=== PATIENT | female | born 1995 | race Caucasian/White ===

== ENCOUNTER → 2016-11-23 | Outpatient (CLI) | payer SELFPAY ==
--- NOTE | 2016-11-23 17:31 | RADIOLOGY REPORT (SQ) ---
EXAM DESCRIPTION: U/S OB TRANSVAGINAL W/O DOP COMPLETED DATE/TIME: 11/23/2016 2:45 pm REASON FOR STUDY: ENCOUNTER FOR SUPERVISION OF OTHER NORMAL , FIRST TRIMESTER Z34.81 ENCOU NTER FOR SUPRVSN OF NORMAL , FIRST TRIM COMPARISON: No previous this TECHNIQUE: Endovaginal static and realtime grayscale images acquired of the pelvis. Additional selec abiodun spectral and color Doppler images recorded. All images stored on PACs. bHCG: Not available. LIMITATIONS: None. FINDINGS: FETUS: Living intrauterine . EGA: 7 weeks 2 days by crown-rump length CEASAR: 07/10/2017 FHR: 141 beats per minute. SUBCHORIONIC BLEED: No SIZE OF BLEED: Not applicable. UTERUS: No masses. No anomalies. Uterus is 9.8 x 5.9 x 4.7 cm in size CERVICAL LENGTH: 2.5 cm in length, Closed. RIGHT ADNEXA: Normal ovary with normal vascular flow. Right ovary 3.3 x 1.7 x 1.6 cm in size. No ad nexal free fluid.No adnexal masses. LEFT ADNEXA: Not visualized due to bowel gas. FREE FLUID: None. OTHER: No other significant finding. IMPRESSION: LIVING INTRAUTERINE . EGA 7 weeks 2 days Trimester of : First - 0 to 13 weeks. TECHNICAL DOCUMENTATION: JOB ID: [id number] [employer]- All Rights Reserved
== END ==
LOC: RAD 13:01
PROVIDERS: ATTEND Nurse Practitioner Women's Health
DX: Z34.81 Encounter for supervision of other normal pregnancy, first trimester (principal)
CPT/HCPCS: 76817

== ENCOUNTER 2017-03-05 18:24 | Outpatient (CLI) | payer MEDICAID ==
[2017-03-05 19:12] LABS: BILIRUBIN,URINE NEGATIVE (NEGATIVE); GLUCOSE, URINE NEGATIVE (NEGATIVE); KETONES,URINE NEGATIVE (NEGATIVE); LEUKOCYTE ESTERASE,URINE LARGE (NEGATIVE); NITRITE,URINE NEGATIVE (NEGATIVE); PROTEIN,URINE 30 mg/dL (NEGATIVE); URINE SPECIFIC GRAVITY 1.023
[2017-03-05 19:15] LABS: APPEARANCE,URINE SLIGHTLY HAZY
[2017-03-05 19:27] LABS: URINE BARBITURATES SCREEN NEGATIVE; URINE METHADONE SCREEN NEGATIVE; URINE OPIATES LOW NEGATIVE; URINE PHENCYCLIDINE SCREEN NEGATIVE
[2017-03-05] MEDS ORDERED: OXYCODONE-ACETAMINOPHEN 5-325 MG TABLET PO ONE ×2 (20:28)
[2017-03-05] MEDS ORDERED: OXYCODONE-ACETAMINOPHEN 5-325 MG TABLET ONE (20:39)
== END 2017-03-05 21:01 | disposition home or self-care (01) ==
LOC: LC 18:24
PROVIDERS: ATTEND Obstetrics & Gynecology
PROC: 4A1HXCZ Monitoring of Products of Conception, Cardiac Rate, External Approach (ICD-10-PCS; principal; 2017-03-05)
DX: O99.342 Other mental disorders complicating pregnancy, second trimester (principal); F41.9 Anxiety disorder, unspecified; F32.9 Major depressive disorder, single episode, unspecified; Z91.040 Latex allergy status; Z3A.22 22 weeks gestation of pregnancy
CPT/HCPCS: 80307; 81005

== ENCOUNTER 2017-03-13 10:41 | Emergency (ER) | payer MEDICAID ==
[2017-03-13 11:12] VITALS: BP 108/65
--- NOTE | 2017-03-13 11:47 | ER Document Report ---
ED Flu Like - General Chief Complaint: Flu Symptoms Stated Complaint: COUGH, SORE THROAT, BODY ACHES Time Seen by Provider: 03/13/17 10:58 Mode of Arrival: Ambulatory Information source: Patient Notes: Patient is a 21-year-old female who presents to the ER today for one half weeks of cough, runny nose, sore throat. Patient admits to fevers and chills, body aches. She states her fevers got as high as 101.5F. She denies any history of asthma. TRAVEL OUTSIDE OF THE [place] IN LAST 30 DAYS: No - Related Data Allergies/Adverse Reactions: No Known Allergies Allergy (Verified 03/13/17 10:42) Past Medical History - General Information source: Patient - Social History Smoking Status: Never Smoker Chew tobacco use (# tins/day): No Frequency of alcohol use: None Drug Abuse: None Family History: Reviewed & Not Pertinent Patient has suicidal ideation: No Patient has homicidal ideation: No Renal/ Medical History: Denies: Hx Peritoneal Dialysis - Immunizations Hx Diphtheria, Pertussis, Tetanus Vaccination: Yes Review of Systems - Review of Systems Constitutional: See HPI EENT: See HPI Cardiovascular: No symptoms reported Respiratory: See HPI Gastrointestinal: No symptoms reported Genitourinary: No symptoms reported Female Genitourinary: No symptoms reported Musculoskeletal: No symptoms reported Skin: No symptoms reported Hematologic/Lymphatic: No symptoms reported Neurological/Psychological: No symptoms reported Physical Exam - Vital signs Vitals: Temp Pulse Resp BP Pulse Ox 98.9 F 108 H 18 108/65 94 03/13/17 10:56 03/13/17 10:56 03/13/17 10:56 03/13/17 10:56 03/13/17 10:56 - Notes Notes: PHYSICAL EXAMINATION: GENERAL: Mildly ill-appearing, but in no acute distress. HEAD: Atraumatic, normocephalic. EYES: Pupils equal round and reactive to light, extraocular movements intact, sclera anicteric, conjunctiva are normal. ENT: ear canals without erythema or foreign body, normal TMs with pearly negrete good cone of light nares with mucoid discharge, oropharynx clear without exudates. Moist mucous membranes. NECK: Normal range of motion, supple without lymphadenopathy LUNGS: Coughing, otherwise CTAB and equal. No wheezes rales or rhonchi. HEART: Regular rate and rhythm without murmurs ABDOMEN: Soft, no tenderness. No guarding, no rebound EXTREMITIES: Normal range of motion, no pitting edema. No cyanosis. NEUROLOGICAL: Cranial nerves grossly intact. Normal sensory/motor exams. PSYCH: Normal mood, normal affect. SKIN: Warm, Dry, normal turgor, no rashes or lesions noted Course - Re-evaluation Re-evalutation: 03/13/17 16:27 Influenza negative today. - Vital Signs Vital signs: Temp Pulse Resp BP Pulse Ox 98.9 F 108 H 18 108/65 94 03/13/17 10:56 03/13/17 10:56 03/13/17 10:56 03/13/17 10:56 03/13/17 10:56 Discharge - Discharge Clinical Impression: Sinusitis Qualifiers: Sinusitis location: unspecified location Chronicity: acute Recurrence: non- recurrent Qualified Code(s): J01.90 - Acute sinusitis, unspecified Condition: Stable Disposition: HOME, SELF-CARE Additional Instructions: Return immediately for any new or worsening symptoms. Follow up with primary care provider, call tomorrow to make followup appointment. Prescriptions: Amoxicillin 500 mg PO BID #20 capsule Forms: Return to Work Referrals: MIROSLAVA SHEA PA-C [Primary Care Provider] - Follow up as needed
== END 2017-03-13 12:54 | disposition home or self-care (01) ==
LOC: ER 10:41
DX: J01.90 Acute sinusitis, unspecified (principal); R05 Cough; J02.9 Acute pharyngitis, unspecified; M79.1 Myalgia; R09.89 Other specified symptoms and signs involving the circulatory and respiratory systems; R50.9 Fever, unspecified
CPT/HCPCS: 87804; 99283

== ENCOUNTER 2017-04-02 07:58 | Outpatient (CLI) | payer MEDICAID ==
[2017-04-02 09:15] LABS: APPEARANCE,URINE SLIGHTLY-CLOUDY; BILIRUBIN,URINE NEGATIVE (NEGATIVE); COLOR,URINE YELLOW; GLUCOSE, URINE NEGATIVE (NEGATIVE); KETONES,URINE NEGATIVE (NEGATIVE); LEUKOCYTE ESTERASE,URINE MODERATE (NEGATIVE); NITRITE,URINE NEGATIVE (NEGATIVE); PROTEIN,URINE NEGATIVE (NEGATIVE); URINE SPECIFIC GRAVITY 1.028; UROBILINOGEN,URINE NEGATIVE mg/dL (<2.0)
[2017-04-02] MEDS ORDERED: ONDANSETRON 4 MG TAB.RAPDIS PO ONE (09:18)
[2017-04-02 09:26] LABS: URINE AMPHETAMINES SCREEN NEGATIVE; URINE BARBITURATES SCREEN NEGATIVE; URINE BENZODIAZEPINES SCREEN NEGATIVE; URINE COCAINE SCREEN NEGATIVE; URINE MARIJUANA (THC) SCREEN NEGATIVE; URINE METHADONE SCREEN NEGATIVE; URINE PHENCYCLIDINE SCREEN NEGATIVE
[2017-04-02] MEDS ORDERED: ONDANSETRON 4 MG TAB.RAPDIS ONE (09:28)
[2017-04-02] MEDS ORDERED: FAMOTIDINE 20 MG TABLET PO ONE (09:38)
[2017-04-02] MEDS ORDERED: FAMOTIDINE 20 MG TABLET ONE (09:43)
== END 2017-04-02 10:30 | disposition home or self-care (01) ==
LOC: LC 07:58
PROVIDERS: ATTEND Obstetrics & Gynecology
PROC: 4A1HXCZ Monitoring of Products of Conception, Cardiac Rate, External Approach (ICD-10-PCS; principal; 2017-04-02)
DX: O99.612 Diseases of the digestive system complicating pregnancy, second trimester (principal); K52.9 Noninfective gastroenteritis and colitis, unspecified; Z3A.25 25 weeks gestation of pregnancy
CPT/HCPCS: 59899; 81001; 80307; J3490; S0119

== ENCOUNTER 2017-04-03 00:37 | Outpatient (CLI) | payer MEDICAID ==
[2017-04-03 01:04] LABS: APPEARANCE,URINE SLIGHTLY-CLOUDY; BILIRUBIN,URINE NEGATIVE (NEGATIVE); COLOR,URINE YELLOW; GLUCOSE, URINE NEGATIVE (NEGATIVE); KETONES,URINE NEGATIVE (NEGATIVE); LEUKOCYTE ESTERASE,URINE LARGE (NEGATIVE); NITRITE,URINE NEGATIVE (NEGATIVE); PROTEIN,URINE NEGATIVE (NEGATIVE); URINE SPECIFIC GRAVITY 1.027
[2017-04-03 01:15] LABS: URINE AMPHETAMINES SCREEN NEGATIVE; URINE BARBITURATES SCREEN NEGATIVE; URINE BENZODIAZEPINES SCREEN NEGATIVE; URINE COCAINE SCREEN NEGATIVE; URINE MARIJUANA (THC) SCREEN NEGATIVE; URINE METHADONE SCREEN NEGATIVE; URINE PHENCYCLIDINE SCREEN NEGATIVE
== END 2017-04-03 01:30 | disposition home or self-care (01) ==
LOC: LC 00:37
PROVIDERS: ATTEND Obstetrics & Gynecology
PROC: 4A1HXCZ Monitoring of Products of Conception, Cardiac Rate, External Approach (ICD-10-PCS; principal; 2017-04-03)
DX: O99.612 Diseases of the digestive system complicating pregnancy, second trimester (principal); K52.9 Noninfective gastroenteritis and colitis, unspecified; O47.02 False labor before 37 completed weeks of gestation, second trimester; Z3A.26 26 weeks gestation of pregnancy
CPT/HCPCS: 80307; 81001

== ENCOUNTER 2017-05-19 15:03 | Outpatient (CLI) | payer BC, MEDICAID ==
[2017-05-19 15:42] LABS: APPEARANCE,URINE SLIGHTLY-CLOUDY; BILIRUBIN,URINE NEGATIVE (NEGATIVE); COLOR,URINE AMBER; GLUCOSE, URINE NEGATIVE (NEGATIVE); KETONES,URINE NEGATIVE (NEGATIVE); LEUKOCYTE ESTERASE,URINE LARGE (NEGATIVE); NITRITE,URINE NEGATIVE (NEGATIVE); PROTEIN,URINE 30 mg/dL (NEGATIVE); URINE SPECIFIC GRAVITY 1.028
[2017-05-19 15:59] LABS: URINE AMPHETAMINES SCREEN NEGATIVE; URINE BARBITURATES SCREEN NEGATIVE; URINE BENZODIAZEPINES SCREEN NEGATIVE; URINE COCAINE SCREEN NEGATIVE; URINE MARIJUANA (THC) SCREEN NEGATIVE; URINE METHADONE SCREEN NEGATIVE; URINE PHENCYCLIDINE SCREEN NEGATIVE
--- NOTE | 2017-05-19 16:37 | Non Stress Test Report ---
Non Stress Test Datetime Report Generated by CPN: 05/19/2017 16:37 DEMOGRAPHIC EGA NST: 32.4 INDICATION Indication for Study: Ordered by Provider VITAL SIGNS Temperature - NST: 98.6 Pulse - NST: 93 RESP - NST: 14 NBPSYS NST: 106 NBPDIA NST: 56 MONITORING Monitor Explained: Monitor Explained; Test Explained; Patient Verbalized Understanding Time on Monitor: 05/19/2017 15:23 Time off Monitor: 05/19/2017 16:29 NST Duration: 66 NST INTERVENTIONS NST Interventions: PO Hydration Physician Notified NST: P Beckett CNM BABY A: [id number] BABY A Movement : Present Contraction Frequency : none FHR Baseline : 145 Accelerations : 15X15 Decelerations : None Variability : Moderate 6-25bpm NST Review: Meets Criteria for Reactive NST NST Review and Verified By : EMMANUEL ROBERSON RN NST Results: Reactive NST REPORT Report Trigger: Send Report
== END 2017-05-19 16:34 | disposition home or self-care (01) ==
LOC: LC 15:03
PROVIDERS: ATTEND Student in an Organized Health Care Education/Training Program
PROC: 4A1HXCZ Monitoring of Products of Conception, Cardiac Rate, External Approach (ICD-10-PCS; principal; 2017-05-19)
DX: O47.03 False labor before 37 completed weeks of gestation, third trimester (principal); Z3A.32 32 weeks gestation of pregnancy
CPT/HCPCS: 59025; 80307; 81001

== ENCOUNTER 2018-01-16 15:16 | Emergency (ER) | payer BC, MEDICAID ==
[2018-01-16] MEDS ORDERED: ACETAMINOPHEN 325 MG TABLET PO ONE (16:42)
--- NOTE | 2018-01-16 16:43 | ER Document Report ---
HPI - HPI Patient complains to provider of: Neck pain and burning Onset: Last week Onset/Duration: Gradual Pain Level: 4 Context: 22 yo non working female c/o pain and burning in left shoulder/ back since last week. Worse with neck movement. some tingling into shoulder and arm, none now. No injury. Associated Symptoms: None Exacerbated by: Movement Relieved by: Denies Similar symptoms previously: No Recently seen / treated by doctor: No - ROS ROS below otherwise negative: Yes Systems Reviewed and Negative: Yes All other systems reviewed and negative - REPRODUCTIVE Reproductive: REPORTS: : Past Medical History - General Information source: Patient - Social History Smoking Status: Unknown if Ever Smoked Lives with: Family Family History: Reviewed & Not Pertinent - Medical History Medical History: Negative Renal/ Medical History: Denies: Hx Peritoneal Dialysis Surgical Hx: Negative - Immunizations Hx Diphtheria, Pertussis, Tetanus Vaccination: Yes Vertical Provider Document - CONSTITUTIONAL Agree With Documented VS: Yes Exam Limitations: No Limitations General Appearance: No Apparent Distress - INFECTION CONTROL TRAVEL OUTSIDE OF THE [place] IN LAST 30 DAYS: No - HEENT HEENT: Normocephalic - NECK Neck: Supple Notes: tender left trapezius muscle. non tender c spine. Course - Re-evaluation Re-evalutation: 01/16/18 16:50 Patient denies . She understands the range of motion exercises that I have reviewed with her. - Vital Signs Vital signs: Temp Pulse Resp BP Pulse Ox 98.5 F 86 16 137/84 H 98 01/16/18 15:19 01/16/18 15:19 01/16/18 15:19 01/16/18 15:19 01/16/18 15:19 Discharge - Discharge Clinical Impression: Strain of left trapezius muscle Qualifiers: Encounter type: initial encounter Qualified Code(s): S46.812A - Strain of other muscles, fascia and tendons at shoulder and upper arm level, left arm, initial encounter Condition: Good Disposition: HOME, SELF-CARE Instructions: Acetaminophen, Ibuprofen (General) ([facility]), Muscle Relaxers ([facility]), Muscle Strain ([facility]), Warm Packs ([facility]) Additional Instructions: Warm compress Tylenol up to 4000 mg a day for pain Ibuprofen 600 mg every 6 hours for inflammation and pain See your health provider for follow-up Return to the emergency room any worsening of the symptoms or new symptoms that you are concerned about Gentle range of motion exercises of your shoulders and neck 3 times a day. Prescriptions: Ibuprofen [Motrin 600 mg Tablet] 600 mg PO Q8HP PRN #30 tablet PRN Reason: Cyclobenzaprine HCl [Flexeril 10 Mg Tablet] 10 mg PO TIDP PRN #20 tablet PRN Reason:
[2018-01-16 17:25] VITALS: BP 135/86
== END 2018-01-16 17:25 | disposition home or self-care (01) ==
LOC: ER 15:16
DX: S46.812A Strain of other muscles, fascia and tendons at shoulder and upper arm level, left arm, initial encounter (principal); M54.2 Cervicalgia; X58.XXXA Exposure to other specified factors, initial encounter
CPT/HCPCS: 99283; J3490

== ENCOUNTER 2018-04-02 14:26 | Emergency (ER) | payer MEDICAID ==
[2018-04-02] MEDS ORDERED: ACETAMINOPHEN 325 MG TABLET PO ONE (15:04)
[2018-04-02] MEDS ORDERED: ONDANSETRON 4 MG TAB.RAPDIS PO ONE (15:04)
--- NOTE | 2018-04-02 15:40 | ER Document Report ---
ED Medical Screen (RME) - General Chief Complaint: Flu Symptoms Stated Complaint: FEVER Time Seen by Provider: 04/02/18 14:50 Mode of Arrival: Ambulatory Information source: Patient TRAVEL OUTSIDE OF THE [place] IN LAST 30 DAYS: No - HPI Patient complains to provider of: Nausea Onset: Other - This is a 23-year-old female who presents for flulike symptoms times 4 days, she has had some family members sick at home in addition to her being sick at home. She is been vomiting including yesterday. She is been able to eat and drink today but did feel little bit nauseous prompting her to seek care in the emergency department. She denies abdominal pain, diarrhea, constipation, chest pain, shortness of breath. She is never had a like this in the past took some flu medicine to help it. - Related Data Allergies/Adverse Reactions: No Known Allergies Allergy (Verified 04/02/18 14:31) Past Medical History - General Information source: Patient - Social History Cigarette use (# per day): No Chew tobacco use (# tins/day): No Frequency of alcohol use: None Drug Abuse: None Renal/ Medical History: Denies: Hx Peritoneal Dialysis Psychiatric Medical History: Reports: Hx Depression Past Surgical History: Reports: Hx Oral Surgery - Immunizations Hx Diphtheria, Pertussis, Tetanus Vaccination: Yes Review of Systems - Review of Systems -: Yes All other systems reviewed and negative Physical Exam - Vital signs Vitals: Temp Pulse Resp BP Pulse Ox 98.7 F 82 16 122/86 H 98 04/02/18 14:37 04/02/18 14:37 04/02/18 14:37 04/02/18 14:37 04/02/18 14:37 Interpretation: Normal - General General appearance: Appears well, Alert - HEENT Head: Normocephalic, Atraumatic Eyes: Normal Pupils: PERRL - Respiratory Respiratory status: No respiratory distress Chest status: Nontender Breath sounds: Normal Chest palpation: Normal - Cardiovascular Rhythm: Regular Heart sounds: Normal auscultation Murmur: No - Abdominal Inspection: Normal Distension: No distension Bowel sounds: Normal Tenderness: Nontender Organomegaly: No organomegaly - Back Back: Normal, Nontender - Extremities General upper extremity: Normal inspection, Nontender, Normal color, Normal ROM, Normal temperature General lower extremity: Normal inspection, Nontender, Normal color, Normal ROM, Normal temperature, Normal weight bearing. No: Ruy's sign - Neurological Neuro grossly intact: Yes Cognition: Normal Orientation: AAOx4 Saravanan Coma Scale Eye Opening: Spontaneous Saravanan Coma Scale Verbal: Oriented [place] Coma Scale Motor: Obeys Commands Saravanan Coma Scale Total: 15 Speech: Normal Motor strength normal: LUE, RUE, LLE, RLE Sensory: Normal - Psychological Associated symptoms: Normal affect, Normal mood - Skin Skin Temperature: Warm Skin Moisture: Dry Skin Color: Normal Course - Re-evaluation Re-evalutation: 04/02/18 20:46 This well-appearing 23-year-old female presents for evaluation of flu symptoms times 4 days. Her abdominal examination is benign, she is comfortable on room air and has reassuring vital signs. She is been able to eat today. We will obtain a p.o. challenge and urinalysis to test for . Urinalysis is negative for any presidency, after administration of Zofran patient was able to eat in the emergency department her abdominal examination remained benign. She was given a discharge with return precautions thereafter. - Vital Signs Vital signs: Temp Pulse Resp BP Pulse Ox 98.3 F 78 16 120/84 99 04/02/18 16:13 04/02/18 16:13 04/02/18 16:13 04/02/18 16:13 04/02/18 16:13 Doctor's Discharge - Discharge Clinical Impression: Flu-like symptoms Condition: Good Disposition: HOME, SELF-CARE Instructions: Acetaminophen, Influenza ([facility]) [id number] Additional Instructions: You were seen today in the emergency department for your flulike symptoms. You had evaluation including a physical exam as well as a urine test. You are not today. You should use Motrin and Tylenol to help with your fevers. You have been given a prescription to use as needed for nausea. Return in case you have worsening fevers or chills or cannot eat or drink anything. Schedule point with your primary doctor this week. Prescriptions: Ondansetron [Zofran Odt 4 mg Tablet] 1 - 2 tab PO Q4H PRN #15 tab.rapdis PRN Reason: For Nausea/Vomiting
[2018-04-02 16:13] VITALS: BP 120/84
== END 2018-04-02 16:13 | disposition home or self-care (01) ==
LOC: ER 14:26
DX: R11.2 Nausea with vomiting, unspecified (principal)
CPT/HCPCS: 99283; 81025; J3490; S0119

== ENCOUNTER 2020-04-15 18:17 | Emergency (ER) | payer MEDICAID ==
--- NOTE | 2020-04-15 19:01 | ER Document Report ---
ED Medical Screen (RME) - General Stated Complaint: SUICIDAL IDEATIONS Time Seen by Provider: 04/15/20 18:44 TRAVEL OUTSIDE OF THE [place] IN LAST 30 DAYS: No - HPI Notes: 04/15/20 18:50 25-year-old female with a history of anxiety and depression presents to the emergency room today for feelings of worthlessness, helplessness, uselessness after her left her 2 to 3 weeks ago. Patient does not have a plan to harm herself, denies any homicidal ideation. When asked that she has had suicidal ideation she states she just "does not care". Her doctor recently placed her on Klonopin. Patient reports she does have 4 children at home, they are staying with her [id number] and her grandmother. Last menstrual cycle 04/08/2020. Denies any chest pain, shortness of breath, nausea, vomiting, abdominal pain, vaginal bleeding. Patient states she has not cut herself, ingested any harmful substances. I have greeted and performed a rapid initial assessment of this patient. A comprehensive ED assessment and evaluation of the patient, analysis of test results and completion of the medical decision making process will be conducted by additional ED providers. PHYSICAL EXAMINATION: GENERAL: Well-appearing, well-nourished and in no acute distress. Teary-eyed CV: s1, s2 regular LUNGS: No respiratory distress NEUROLOGICAL: Normal speech, normal gait. The patient was evaluated during a global COVID-19 pandemic and that diagnosis was suspected/considered upon their initial presentation. Their evaluation, treatment and testing was consistent with current guidelines for patients who present with complaints or symptoms and may be related to COVID-19. - Related Data Allergies/Adverse Reactions: No Known Allergies Allergy (Verified 04/02/18 14:31) Past Medical History Renal/ Medical History: Denies: Hx Peritoneal Dialysis Psychiatric Medical History: Reports: Hx Depression Past Surgical History: Reports: Hx Oral Surgery - Immunizations Hx Diphtheria, Pertussis, Tetanus Vaccination: Yes Physical Exam - Vital signs Vitals: Temp Pulse Resp BP Pulse Ox 100.1 F 91 18 150/115 H 100 04/15/20 18:32 04/15/20 18:32 04/15/20 18:32 04/15/20 18:32 04/15/20 18:32 Course - Vital Signs Vital signs: Temp Pulse Resp BP Pulse Ox 100.1 F 91 18 150/115 H 100 04/15/20 18:32 04/15/20 18:32 04/15/20 18:32 04/15/20 18:32 04/15/20 18:32
[2020-04-15 19:21] LABS: ABSOLUTE LYMPHOCYTES (AUTO) 1.4 10^3/uL (0.5-4.7); ABSOLUTE MONOCYTES (AUTO) 0.5 10^3/uL (0.1-1.4); ABSOLUTE NEUT (AUTO) 3.8 10^3/uL (1.7-8.2); BASOPHILS % (AUTO) 0.5 % (0-2); EOSINOPHILS % (AUTO) 0.6 % (0-6); HEMATOCRIT 37.8 % (36.0-47.0); HEMOGLOBIN 13.1 g/dL (12.0-15.5); LYMPHOCYTES % (AUTO) 24.7 % (13-45); MEAN CORPUSCULAR HEMOGLOBIN 29.9 pg (27.0-33.4); MEAN CORPUSCULAR HGB CONC 34.5 g/dL (32.0-36.0); MEAN CORPUSCULAR VOLUME 87 fl (80-97); MONOCYTES % (AUTO) 7.8 % (3-13); PLATELET COUNT 233 10^3/uL (150-450); RED BLOOD COUNT 4.36 10^6/uL (3.72-5.28); RED CELL DISTRIBUTION WIDTH 12.9 % (11.5-14.0); SEGMENTED NEUTROPHILS % (AUTO) 66.4 % (42-78); TOTAL CELLS COUNTED % (AUTO) 100 %; WHITE BLOOD COUNT 5.8 10^3/uL (4.0-10.5)
[2020-04-15 19:24] LABS: APPEARANCE,URINE SLIGHTLY-CLOUDY; BILIRUBIN,URINE NEGATIVE (NEGATIVE); COLOR,URINE YELLOW; GLUCOSE, URINE NEGATIVE (NEGATIVE); KETONES,URINE NEGATIVE (NEGATIVE); LEUKOCYTE ESTERASE,URINE LARGE (NEGATIVE); NITRITE,URINE NEGATIVE (NEGATIVE); PROTEIN,URINE NEGATIVE (NEGATIVE); URINE SPECIFIC GRAVITY 1.012; UROBILINOGEN,URINE NEGATIVE mg/dL (<2.0)
[2020-04-15 19:39] LABS: ALBUMIN 4.6 g/dL (3.5-5.0); ALKALINE PHOSPHATASE 74 U/L (38-126); ANION GAP 5 (5-19); ASPARTATE AMINO TRANSFERASE 44 U/L (14-36); BILIRUBIN,DIRECT 0.2 mg/dL (0.0-0.4); BILIRUBIN,TOTAL 0.4 mg/dL (0.2-1.3); BLOOD UREA NITROGEN 5 mg/dL (7-20); CARBON DIOXIDE 29 mmol/L (22-30); CHLORIDE 107 mmol/L (98-107); GLUCOSE 89 mg/dL (75-110); POTASSIUM 3.9 mmol/L (3.6-5.0); TOTAL PROTEIN 7.8 g/dL (6.3-8.2); URINE AMPHETAMINES SCREEN NEGATIVE; URINE BARBITURATES SCREEN NEGATIVE; URINE BENZODIAZEPINES SCREEN NEGATIVE; URINE COCAINE SCREEN NEGATIVE; URINE MARIJUANA (THC) SCREEN NEGATIVE; URINE METHADONE SCREEN NEGATIVE; URINE PHENCYCLIDINE SCREEN NEGATIVE
[2020-04-15 19:40] LABS: ACETAMINOPHEN < 10 ug/mL (10-30); ALCOHOL < 10 mg/dL (NONE DETECTED); SALICYLATE < 1.0 mg/dL (2.0-20.0)
--- NOTE | 2020-04-15 21:54 | EKG REPORT ---
SEVERITY:- ABNORMAL ECG - SINUS RHYTHM PROBABLE LEFT VENTRICULAR HYPERTROPHY BORDERLINE T ABNORMALITIES, INFERIOR LEADS : Confirmed by: Camilo Martin MD 15-Apr-2020 21:53:46
--- NOTE | 2020-04-16 07:27 | ER Document Report ---
ED Psych Disorder / Suicide - General Chief Complaint: Depression Stated Complaint: SUICIDAL IDEATIONS Time Seen by Provider: 04/15/20 18:44 Primary Care Provider: JOHNATHAN GARCIAS JR, MD [Primary Care Provider] - Follow up as needed Notes: Patient is a 25 year female who comes emergency department for chief complaint of feeling anxiety, feel like she is having panic attacks, having difficulty sleeping. She states she feels worthless, helpless, and useless. She states she is single down her left her 3 weeks ago. She does deny suicidal ideations or plan however. She denies homicidal ideations. She states that she has 4 children at home and they are staying with her [id number] and grandmother. She states she is on buprenorphine and tizanidine for chronic pain, Abilify, and was recently given a trial of Klonopin to see if it will help. Other than chronic back pain, hypertension, anxiety/depression she denies any medical history. She denies recreational drugs. She denies . TRAVEL OUTSIDE OF THE [place] IN LAST 30 DAYS: No - Related Data Allergies/Adverse Reactions: No Known Allergies Allergy (Verified 04/02/18 14:31) Home Medications: klonopin out of effexor and ambilify for 2 days Past Medical History - General Information source: Patient - Social History Smoking Status: Never Smoker Chew tobacco use (# tins/day): No Frequency of alcohol use: stopped heavy drinking a month ago Drug Abuse: None Lives with: Family Family History: Reviewed & Not Pertinent Renal/ Medical History: Denies: Hx Peritoneal Dialysis Psychiatric Medical History: Reports: Hx Depression Past Surgical History: Reports: Hx Oral Surgery - Immunizations Hx Diphtheria, Pertussis, Tetanus Vaccination: Yes Review of Systems - Review of Systems Constitutional: No symptoms reported EENT: No symptoms reported Cardiovascular: No symptoms reported Respiratory: No symptoms reported Gastrointestinal: No symptoms reported Genitourinary: No symptoms reported Female Genitourinary: No symptoms reported Musculoskeletal: No symptoms reported Skin: No symptoms reported Hematologic/Lymphatic: No symptoms reported Neurological/Psychological: See HPI Physical Exam - Vital signs Vitals: Temp Pulse Resp BP Pulse Ox 100.1 F 91 18 150/115 H 100 04/15/20 18:32 04/15/20 18:32 04/15/20 18:32 04/15/20 18:32 04/15/20 18:32 - Notes Notes: GENERAL: Alert, interacts well. No acute distress. HEAD: Normocephalic, atraumatic. EYES: Pupils equal, round, and reactive to light. Extraocular movements intact. ENT: Oral mucosa moist, tongue midline. Oropharynx unremarkable. Airway patent. LUNGS: Clear to auscultation bilaterally, no wheezes, rales, or rhonchi. No respiratory distress. Non-tender chest wall. HEART: Regular rate and rhythm. No murmur ABDOMEN: Soft, non-tender. Non-distended. EXTREMITIES: Moves all 4 extremities spontaneously. No edema, normal radial and dorsalis pedis pulses bilaterally. No cyanosis. BACK: no cervical, thoracic, lumbar midline tenderness. No saddle anesthesia, normal distal neurovascular exam. Moves all extremities in full range of motion. NEUROLOGICAL: Alert and oriented x3. Normal speech. Cranial nerves II through XII grossly intact. Strength 5/5 in all extremities. PSYCH: Normal affect, normal mood. Smiling and talkative SKIN: Warm, dry, normal turgor. No rashes or lesions noted. Course - Re-evaluation Re-evalutation: Patient slept several hours last night, after awakening she states she feels a lot better than she did before. She states she would still like to talk to mental health team, however she denies SI or HI. She does not meet IVC criteria. She is not acutely psychotic. She is calm, well-appearing, cooperative. Vital signs unremarkable other than borderline blood pressure which is chronic. CBC, chemistry unremarkable, tox screen unremarkable, urine does show infection. Remaining work-up unremarkable. Discussed with patient, she will be started on antibiotics for UTI after discussing options. Patient is medically cleared, staying voluntarily, pending mental health evaluation. - Vital Signs Vital signs: Temp Pulse Resp BP Pulse Ox 98.4 F 87 18 137/92 H 100 04/16/20 05:00 04/16/20 05:00 04/16/20 05:00 04/16/20 05:00 04/16/20 05:00 - Laboratory Results Result Diagrams: 04/15/20 19:05 04/15/20 19:05 Laboratory Results Interpreted: 04/15/20 04/15/20 19:05 19:05 BUN 5 L AST 44 H ALT 82 H Urine Blood MODERATE H Ur Leukocyte Esterase LARGE H Salicylates < 1.0 L Acetaminophen < 10 L Critical Laboratory Results Reviewed: No Critical Results - Radiology Results Critical Radiology Results Reviewed: No Critical Results - EKG Interpretation by Me Additional EKG results interpreted by me: EKG shows sinus rhythm at a rate of 88, QTc 417, left axis deviation, borderline flattened T waves anteriorly and inverted T wave in lead III but no T wave inversions or ST segment changes in consecutive leads. Discharge - Discharge Clinical Impression: Anxiety, Grief reaction Condition: Stable Disposition: PSYCH HOSP/UNIT Referrals: JOHNATHAN GARCIAS JR, MD [Primary Care Provider] - Follow up as needed
[2020-04-16] MEDS ORDERED: CEPHALEXIN 500 MG CAPSULE PO SCH (10:00)
[2020-04-16 13:04] VITALS: BP 132/76
--- NOTE | 2020-04-16 17:38 | PSYCHOLOGICAL NOTE ---
Psych Note - Psych Note Date seen by psych provider: 04/16/20 Time seen by psych provider: 11:43 Psych Note: Reason for Consult: anxiety Consent permissions: Marino Denny, , [id number] Patient is a 25 year old female who was admitted to the ED via POV for anxiety and panic attacks. Patient denies suicidal and homicidal ideation, plan, and intent. She reports coming to the ED for worsening anxiety. State she has been dealing with anxiety most of her life and depression since age 17, but got worse about 6 years ago when she had her first kid. Patient has 4 kids at home ages ranging from 3 months to 6 years. Patient states anxiety is worse than depression. She denies history of suicide attempts and self-harm. She denies inpatient hospitalizations. Patient reports being prescribed approximately 0.5mg of Klonopin 1-2 times a day as needed, Effexor 150mg daily, and Abilify 4- 5mg daily. She states she was on hydroxyzine and it was ineffective and she stopped taking that about 1.5 weeks ago. She reports currently only getting samples of Klonopin for the past 1.5 weeks and is supposed to return to her medication management provider, [facility], at the two week oscar. She reports medications do not seem to be helping her anxiety. She is not currently involved in therapy, but states she is interested. Collateral: [id number] Spoke to patients who was aware she was here. Reports he has been talking to her today. He reports no safety concerns. reports patient struggles with anxiety and some depression, but denies any SI. He reports her medications do not seem to be working. He is out of town today, but states he will be part of her discharge plan of care and patient will be driving herself home as she drove self here. Patient was alert and oriented to self, person, place, time and situation. Mood was anxious with congruent affect. She denies current suicidal and homicidal ideation, plan, and intent. Patient did not appear to be responding to internal stimuli as evidenced by fair eye contact and answering questions appropriately when addressed. Thought processes are linear and organized. Conversational speech was within normal limits for rate, tone and prosody. Intellectual abilities are estimated to be average. Insight, judgment, and impulse control were fair as evidenced by coming to the ED for assistance. Patient engages appropriately. She demonstrates future forward goal oriented thinking as she talks about following up with [facility] and looking into outpatient therapy. Clinical Presentation: anxiety and depression IVC Criteria per [place] GS 122C Dangerous to others Within the relevant past the individual No has inflicted or attempted to inflict or threatened to inflict serious bodily harm on another AND No that there is a reasonable probability that this conduct will be repeated. OR No has acted in such a way as to create a substantial risk of serious bodily harm to another AND No that there is a reasonable probability that this conduct will be repeated. OR No has engaged in extreme destruction of property AND NO that there is a reasonable probability that this conduct will be repeated. Previous episodes of dangerousness to others, when applicable, may be considered when determining reasonable probability of future dangerous conduct. Clear, cogent, and convincing evidence that an individual has committed a homicide in the relevant past is prima facie evidence of dangerousness to others. Dangerous to self Within the relevant past the individual has done any of the following: acted in such a way as to show ALL of the following: No The individual would be unable without care, supervision, and the continued assistance of others not otherwise available, to exercise self- control, judgment, and discretion in the conduct of the individual's daily responsibilities and social relations or to satisfy the individual's need for nourishment, personal or medical care, long-term, or self-protection and safety. AND No There is a reasonable probability of the individual suffering serious physical debilitation within the near future unless adequate treatment is given. A showing of behavior that is grossly irrational, of actions that the individual is unable to control, of behavior that is grossly inappropriate to the situation, or of other evidence of severely impaired insight and judgment shall create a prima facie inference that the individual is unable to care for himself or herself. OR No has attempted suicide or threatened suicide AND No that there is a reasonable probability of suicide unless adequate treatment is given OR No has mutilated himself or herself or attempted to mutilate himself or herself AND No that there is a reasonable probability of serious self-mutilation unless adequate treatment is given. NOTE: Previous episodes of dangerousness to self, when applicable, may be considered when determining reasonable probability of physical debilitation, suicide, or self-mutilation. Medication recommendations per [facility] contracted psychiatrist, Dr. Bandar SUAREZ, are as follows: stop Abilify, start Buspar 5mg twice daily, continue home medications of Effexor and Klonopin as scheduled by [facility] Impression\plan: Patient is cleared from psychiatric services. Patient does not meet criteria for IVC. She was admitted to the ED for anxiety and panic attacks and denies suicidal ideation, plan, and intent. Patient reports medication management with [facility], but does not feel medications are effective. She recently started Klonopin samples 1.5 weeks ago and plans to follow up with [facility] at the two week oscar. Her was contacted who was aware of patient being in the ED. He denied safety concerns and reported planning to be part of discharge plan of care. Patient drove self to the ED and is not currently home, but he was made aware of crisis resources for patient and to bring patient back to the ED or [place] crisis [facility] is symptoms return or worsen. Patient is already involved in medication management with Danielle at [facility] and plans to follow up with them within the week. She states she is not currently involved in therapy, but is interested. She was given community resources for outpatient facilities in the community, to include her current provider [facility]. She was also given resources for [place] crisis [facility] and mobile crisis with [facility] and [facility]. Patient agrees to follow up with [facility] for medication continuation and to look into therapy options with the assistance of her . She was recommended to return to the ED if her symptoms return or worsen. Dr. Zamarripa was consulted to care management of this patient; attending physicians in agreement with recommendations and disposition.
== END 2020-04-16 12:49 | disposition home or self-care (01) ==
LOC: ER 18:17
DX: N39.0 Urinary tract infection, site not specified (principal); R31.9 Hematuria, unspecified; F41.9 Anxiety disorder, unspecified; R45.851 Suicidal ideations; F32.9 Major depressive disorder, single episode, unspecified
CPT/HCPCS: 36415; 80053; 80307; 81001; 84703; 85025; 87086; 93005; 93010; 99284